=== PATIENT | male | born 1960 | race Caucasian/White ===

== ENCOUNTER → 2016-05-11 | Outpatient (CLI) | payer BC ==
[~2016-05-11] MED LIST: ASPI81CH2 PO; BLOOD PRESSURE PO; FLVHFA110 INH; IPRA1AER2 INH; LISIPOW PO; LSX40 PO; METO1TAB31 PO; POTA1TAB97 PO; [UNRECOGNIZED DRUG - CODE] PO
--- NOTE | 2016-05-11 14:39 | DIAGNOSTIC IMAGING REPORT ---
RIGHT ELBOW MIN 3 VIEWS ROUTINE CLINICAL HISTORY: Olecranon bursitis. COMPARISON: None FINDINGS: Alignment of the right elbow is anatomic. There is no acute fracture or suspicious lesion. There is no evidence of a joint effusion. There is mild spurring of the olecranon at the insertion of the triceps. There is mild to moderate soft tissue swelling overlying the olecranon. IMPRESSION: 1. No acute fracture or joint effusion of the right elbow. 2. Mild to moderate soft tissue swelling overlying olecranon. The radiographic appearance is nonspecific but this could reflect olecranon bursitis. Electronically signed by: Kiet Simpson M.D. 05/11/2016 2:37 PM Dictated Date/Time: 05/11/2016 2:34 PM
== END | disposition home or self-care (01) ==
LOC: C.RAD1850 14:06
PROVIDERS: ATTEND Family Medicine
DX: M70.20 Olecranon bursitis, unspecified elbow (principal)

== ENCOUNTER 2016-09-06 17:34 | Inpatient (IN) | payer BC, OTHER ==
[~2016-09-06] VITALS: Ht 185.4 cm; Wt 120.7 kg
[~2016-09-06 17:34] MED LIST changes: -ASPI81CH2 PO; -BLOOD PRESSURE PO; -IPRA1AER2 INH; -LISIPOW PO; -LSX40 PO; -METO1TAB31 PO; -POTA1TAB97 PO
[2016-09-06] MEDS ORDERED: POTASSIUM CHLORIDE 10 MEQ TABCR PO STA (17:52)
[2016-09-06] MEDS ORDERED: MAGNESIUM SULFATE 1GM / D5W 1 GM BAG IV STA (17:52)
[2016-09-06] MEDS ORDERED: IPRA1AER2 INH (17:58)
[2016-09-06] MEDS ORDERED: [UNRECOGNIZED DRUG - CODE] PO (17:58)
[2016-09-06] MEDS ORDERED: BLOOD PRESSURE PO (17:58)
--- NOTE | 2016-09-06 18:05 | DIAGNOSTIC IMAGING REPORT ---
CHEST ONE VIEW PORTABLE CLINICAL HISTORY: pitting edema dyspnea COMPARISON STUDY: 10/23/2014 FINDINGS: Moderate cardiomegaly. Moderate congestive heart failure. Small right pleural effusion. IMPRESSION: Congestive heart failure. Small right pleural effusion. Electronically signed by: Ravindra Gray M.D. 09/06/2016 6:04 PM Dictated Date/Time: 09/06/2016 6:03 PM
[2016-09-06 18:32] LABS: BASO % 0.3 %; BASO ABS # 0.04 K/uL (0-0.2); COMPLETE YES; EOS % 0.8 %; HEMATOCRIT 46.6 % (42-52); IG% 0.3 %; LYMPH % 16.9 %; LYMPH ABS # 1.96 K/uL (1.2-3.4); MEAN CELL VOLUME 109.6 fL (80-100); MEAN CORPUSCULAR HEMOGLOBIN 37.9 pg (25-34); MEAN CORPUSCULAR HGB CONC 34.5 g/dl (32-36); MEAN PLATELET VOLUME 10.8 fL (7.4-10.4); MONO % 10.4 %; NEUT % 71.3 %; PLATELET COUNT 197 K/uL (130-400); RED BLOOD COUNT 4.25 M/uL (4.7-6.1); WHITE BLOOD COUNT 11.63 K/uL (4.8-10.8)
[2016-09-06 18:55] LABS: BUN/CREATININE RATIO 10.8 (10-20); CREATININE 0.72 mg/dl (0.60-1.40); MAGNESIUM 1.6 mg/dl (1.8-2.4)
[2016-09-06] MEDS ORDERED: FUROSEMIDE 40 MG/4 ML VIAL IV STA (19:08)
[2016-09-06] MEDS ORDERED: ONDANSETRON INJ 2 MG/ML 2 ML VIAL IV PRN (19:15)
[2016-09-06] MEDS ORDERED: MoRPHine SULFATE 2 MG/ML CARP IV PRN (19:15)
[2016-09-06] MEDS ORDERED: ALUMINUM/MAGNESIUM/SIMETH (MAALOX MAX) 30 ML UDC PO PRN (19:15)
[2016-09-06] MEDS ORDERED: MAGNESIUM HYDROXIDE SUSP 30 ML UDC PO PRN (19:15)
[2016-09-06] MEDS ORDERED: NITROGLYCERIN 0.4 MG SL PER TAB CHARGE SL PRN (19:15)
[2016-09-06] MEDS ORDERED: ACETAMINOPHEN 325 MG TAB PO PRN (19:15)
--- NOTE | 2016-09-06 19:33 | EMERGENCY ROOM VISIT NOTE ---
History Report prepared by Lauren: Juany Mahoney Under the Supervision of: Dr. Tej Lucero D.O. 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 The patient states that he occasionally experiences gout in his toes and states that with gout he experiences swelling in his feet. He states he currently has gout on his right foot but once on medication the swelling resolved. He states that he noticed that the swelling was not resolving and was worsening. The patient states he takes Bumex for a diuretic but states he ran out of his medication about 1 week ago. He states he saw his PCP today and was going to receive Bumex by IV but after blood work showing abnormal potassium and magnesium he was told to come into the ED. The patient states that he has noticed the edema has gone up his legs and up into his buttocks. He states that other than the edema he has no chest pain, or worsening shortness of breath. He states that he does have some shortness of breath when laying down but states that it has not been occurring more recently. Patient states that he is not sure how much weight he has gain recently due to the edema. The patient denies any diarrhea, fever, and abdominal pain recently. 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 A total of 10 systems reviewed and were otherwise negative. Past Medical & Surgical Medical Problems: (1) Acute on chronic systolic (congestive) heart failure (2) History of Hodgkin's disease (3) Hypertension (4) Pneumonia (5) Tobacco Use Disorder Surgical Problems: (1) History of rotator cuff surgery Family History Cancer Heart disease Lung disease Social History Smoking Status: Current Every Day Smoker Alcohol Use: occasionally Marital Status: Occupation Status: employed Current/Historical Medications Scheduled Ipratropium-Albuterol (Combivent Respimat), 1 PUFFS INH QID [Blood Pressure], 1 TAB PO DAILY [Diuretic], 1 TAB PO DAILY Scheduled PRN Fluticasone Propionate (Flovent Hfa), 2 PUFF INH BID PRN for PRN Allergies Coded Allergies: Iodinated Diagnostic Agents (Verified Allergy, Intermediate, "my face blew up", 09/06/16) Physical Exam Vital Signs Date Time Temp Pulse Resp B/P Pulse Ox O2 Delivery O2 Flow Rate FiO2 09/06/16 18:25 90 24 142/99 95 Room Air 09/06/16 17:39 36.0 89 20 145/91 93 Room Air Physical Exam GENERAL: Standing up in room, alert, well appearing, well nourished, no distress , non-toxic EYE EXAM: normal conjunctiva OROPHARYNX: no exudate, no erythema, lips, buccal mucosa, and tongue normal and mucous membranes are moist NECK: supple, no nuchal rigidity, no adenopathy, non-tender LUNGS: Clear to auscultation. Normal chest wall mechanics HEART: no murmurs, S1 normal and S2 normal ABDOMEN: abdomen soft, non-tender, normo-active bowel sounds, no masses, no rebound or guarding. BACK: Back is symmetrical on inspection and there is no deformity, no midline tenderness, no CVA tenderness. SKIN: no rashes and no bruising UPPER EXTREMITIES: upper extremities are grossly normal, IV located in right forearm. LOWER EXTREMITIES: Pitting edema tracking up to hips. NEURO EXAM: Normal sensorium, cranial nerves II-XII grossly intact, normal speech, no gross weakness of arms, no gross weakness of legs. Medical Decision & Procedures ER Provider Diagnostic Interpretation: Radiology results as stated below per my review and the radiologist's interpretation: CHEST ONE VIEW PORTABLE CLINICAL HISTORY: pitting edema dyspnea COMPARISON STUDY: 10/23/2014 FINDINGS: Moderate cardiomegaly. Moderate congestive heart failure. Small right pleural effusion. IMPRESSION: Congestive heart failure. Small right pleural effusion. Electronically signed by: Ravindra Gray M.D. 09/06/2016 6:04 PM Dictated Date/Time: 09/06/2016 6:03 PM Laboratory Results 09/06/16 18:18 Red Blood Count 4.25, Mean Corpuscular Volume 109.6, Mean Corpuscular Hemoglobin 37.9, Mean Corpuscular Hemoglobin Concent 34.5, Mean Platelet Volume 10.8, Neutrophils (%) (Auto) 71.3, Lymphocytes (%) (Auto) 16.9, Monocytes (%) ( Auto) 10.4, Eosinophils (%) (Auto) 0.8, Basophils (%) (Auto) 0.3, Neutrophils # (Auto) 8.30, Lymphocytes # (Auto) 1.96, Monocytes # (Auto) 1.21, Eosinophils # ( Auto) 0.09, Basophils # (Auto) 0.04 09/06/16 18:18 Test 09/06/16 18:18 White Blood Count 11.63 K/uL (4.8-10.8) Red Blood Count 4.25 M/uL (4.7-6.1) Hemoglobin 16.1 g/dL (14.0-18.0) Hematocrit 46.6 % (42-52) Mean Corpuscular Volume 109.6 fL (80-100) Mean Corpuscular Hemoglobin 37.9 pg (25-34) Mean Corpuscular Hemoglobin Concent 34.5 g/dl (32-36) Platelet Count 197 K/uL (130-400) Mean Platelet Volume 10.8 fL (7.4-10.4) Neutrophils (%) (Auto) 71.3 % Lymphocytes (%) (Auto) 16.9 % Monocytes (%) (Auto) 10.4 % Eosinophils (%) (Auto) 0.8 % Basophils (%) (Auto) 0.3 % Neutrophils # (Auto) 8.30 K/uL (1.4-6.5) Lymphocytes # (Auto) 1.96 K/uL (1.2-3.4) Monocytes # (Auto) 1.21 K/uL (0.11-0.59) Eosinophils # (Auto) 0.09 K/uL (0-0.5) Basophils # (Auto) 0.04 K/uL (0-0.2) RDW Standard Deviation 55.9 fL (36.4-46.3) RDW Coefficient of Variation 13.9 % (11.5-14.5) Immature Granulocyte % (Auto) 0.3 % Immature Granulocyte # (Auto) 0.03 K/uL (0.00-0.02) Anion Gap 7.0 mmol/L (3-11) Est Creatinine Clear Calc Drug Dose 166.6 ml/min Estimated GFR () 123.4 Estimated GFR (Non- 106.5 BUN/Creatinine Ratio 10.8 (10-20) Calcium Level 9.0 mg/dl (8.5-10.1) Magnesium Level 1.6 mg/dl (1.8-2.4) Pro-B-Type Natriuretic Peptide 889 pg/ml (0-900) Laboratory results per my review. Medications Administered Medications (Trade) Dose Ordered Sig/Meghann Route Start Time Stop Time Status Last Admin Dose Admin Magnesium Sulfate (Magnesium Sulfate) 2 gm NOW STAT IV 09/06/16 17:52 09/06/16 17:53 DC 09/06/16 17:52 2 GM Potassium Chloride (Klor-Con M10) 40 meq NOW STAT PO 09/06/16 17:52 09/06/16 17:53 DC 09/06/16 18:14 40 MEQ Furosemide (Lasix Inj) 40 mg NOW STAT IV 09/06/16 19:08 09/06/16 19:12 DC 09/06/16 19:14 40 MG ECG Indication: other (edema) Rate (beats per minute): 90 Rhythm: sinus rhythm Findings: PVC, left axis deviation, other (Prolonged QT) ED Course ED COURSE: Vital signs were reviewed and showed normal The patients medical record was reviewed. He had a catheterization in 2014 which showed no CAD, non ischemic cardiomyopathy secondary to hypertension and COPD Echocardiogram done 11/02/2014 shows EF is moderate LV disfunction, grade 1 diastolic disfunction. The patient had blood work done on 09/06/2016 showing a potassium of 3.0 and magnesium of 1.4 The above diagnostic studies were performed and reviewed. ED treatments and interventions as stated above. 174: The patient was evaluated in room C3. A complete history and physical examination was performed. 175: Ordered Potassium Chloride 40 meq PO, Magnesium Sulfate 2 gm IV. 1753: I discussed the case with Dr. Belkis JOSÉ Hospitalist. He agreed to evaluate the patient for further management and care. 1759: Upon reevaluation, the patient is resting comfortably.I discussed my findings with the patient and he understands and agrees with the treatment plan.Based on the patients age, coexisting illnesses, exam and lab findings the decision to treat as an inpatient was made.The patient remained stable while under my care. The patient will be evaluated for further management. Medical Decision Differential diagnoses includes but is not limited to pneumonia, bronchitis, COPD/Asthma exacerbation, pneumothorax, pulmonary embolism, congestive heart failure, acute coronary syndrome Patient is a 55-year-old male who presents the ER from cardiology. He ran out of his diuretic a week ago and has been gaining weight and has been putting edema is lower extremity is. He had blood work done which showed hypokalemia and a potassium of 3.0 along with hypomagnesemia and a magnesium of 1.4. He presents the ER with an IV in place. Dr. Miller from cardiology recommended admission and echo along with replacement of his potassium, magnesium and then diuresis. Upon presentation blood work was obtained and I discussed the case with internal medicine. EKG did confirm a prolonged QT. Patient was updated at bedside admitted to internal medicine. Consults Time Called: 1751 Consulting Physician: Dr. Belkis JOSÉ Hospitalist Returned Call: 1753 I discussed the case with Dr. Belkis JOSÉ Hospitalist. He agreed to evaluate the patient for further management and care. Impression Primary Impression: CHF (congestive heart failure) Additional Impressions: Hypokalemia Hypomagnesemia Scribe Attestation The scribe's documentation has been prepared under my direction and personally reviewed by me in its entirety. I confirm that the note above accurately reflects all work, treatment, procedures, and medical decision making performed by me. Departure Information Dispostion Being Evaluated By Hospitalist Referrals No Doctor, Assigned (PCP) Patient Instructions My [facility] Problem Qualifiers Primary Impression: CHF (congestive heart failure) Congestive heart failure type: unspecified congestive heart failure type Congestive heart failure chronicity: unspecified congestive heart failure chronicity Qualified Codes: I50.9 - Heart failure, unspecified
[2016-09-06] MEDS: ALBUT/IPRATROP 3MG/0.5MG NEB 3 ML VIAL INH SCH (20:00)
[2016-09-06 20:44] VITALS: BP 150/91; PULSE 89; TEMP 36.9; O2SAT 93
[2016-09-06] MEDS ORDERED: CARVEDILOL 3.125 MG TAB PO SCH (21:00)
[2016-09-06] MEDS: MAGNESIUM OXIDE 400 MG TAB PO SCH (21:06)
[2016-09-06 21:26] LABS: HEMATOCRIT 48.4 % (42-52); MEAN CELL VOLUME 109.3 fL (80-100); MEAN CORPUSCULAR HEMOGLOBIN 38.8 pg (25-34); MEAN CORPUSCULAR HGB CONC 35.5 g/dl (32-36); MEAN PLATELET VOLUME 10.6 fL (7.4-10.4); PLATELET COUNT 190 K/uL (130-400); RED BLOOD COUNT 4.43 M/uL (4.7-6.1); WHITE BLOOD COUNT 11.56 K/uL (4.8-10.8)
[2016-09-06] MEDS ORDERED: COLCHICINE 0.6 MG TAB PO ONE (21:30)
[2016-09-06] MEDS ORDERED: GABAPENTIN 600 MG TAB PO SCH (21:30)
[2016-09-06] MEDS ORDERED: LORAZEPAM 2 MG/ML 1 ML VIAL IV PRN (21:30)
[2016-09-06] MEDS ORDERED: LISINOPRIL 10 MG TAB PO ONE (21:30)
[2016-09-06] MEDS ORDERED: POTASSIUM CHLORIDE 10 MEQ TABCR PO ONE (21:30)
[2016-09-06] MEDS ORDERED: LORAZEPAM 1 MG TAB PO PRN (21:30)
--- NOTE | 2016-09-06 21:37 | History and Physical ---
History & Physical Date & Time of Service: September 06, 2016 at 18:45 Chief Complaint: Fluid Retention Primary Care Physician: Meg Goodwin M.D. History of Present Illness Source: patient 55yo male with h/o dilated cardiomyopathy/chronic systolic CHF with EF 40-45% who presents as a referral from Dr. Henriquez's office ([facility]) due to decompensated CHF. For about 3 weeks he has had worsening LE edema, dyspnea on exertion, abdominal swelling, and weight gain (20-30 pounds). Surprisingly he denies PND or orthopnea. Denies chest pain or tightness. He admits to high salt intake through his diet over the last few months. He also drinks at least 2 shots of liquor nightly. Following his visit with Dr. Henriquez today he had blood work and was found to have low potassium and low magnesium. Attempts were going to be made to diurese him in the office but due to the electrolyte abnormalities and prolonged QTc on EKG he was referred to the ER. In addition to the above he reports active gout in the right mid-foot. He has had multiple episodes of gout in the past. He does not know the names of his medications but states he "takes a water pill ". [facility] pharmacy was contacted and he did in fact, on September 01, fill a prescription for 25mg of chlorthalidone. Past Medical/Surgical History PMH: 1. chronic systolic CHF, EF 45% - dx 2014 2. Hodgkin's Lymphoma - dx age 32 3. HTN 4. COPD 5. chronic tobacco dependence 6. gout PSH: 1. lymph node biopsy 2. 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 [employer]) Multi-Drug Resistant Organisms History of MDRO: No Allergies Coded Allergies: Iodinated Diagnostic Agents (Verified Allergy, Intermediate, "my face blew up", 09/06/16) Home Medications Scheduled Ipratropium-Albuterol (Combivent Respimat), 1 PUFFS INH QID [Blood Pressure], 1 TAB PO DAILY [Diuretic], 1 TAB PO DAILY Scheduled PRN Fluticasone Propionate (Flovent Hfa), 2 PUFF INH BID PRN for PRN Review of Systems Constitutional: + problem reported (weight gain - 20-30 pounds), No chills, No fatigue, No fever, No sweats, No weakness Eyes: No worsening of vision ENT: + nasal symptoms (allergies), No hearing loss, No sore throat, No trouble swallowing Respiratory: + cough, + dyspnea on exertion, + sputum (white in color), No dyspnea at rest, No hemoptysis, No wheezing Cardiovascular: + edema, No PND, No chest pain, No orthopnea, No palpitations Abdomen: No diarrhea, No nausea, No pain, No vomiting Musculoskeletal: + joint pain (gout - right foot) Genitourinary - Male: No dysuria, No hematuria Neurologic: No numbness/tingling Psychiatric: No anxiety, No depression symptoms Endocrine: No excessive thirst, No excessive urination, No fatigue Hematologic / Lymphatic: No abnormal bleeding/bruising Integumentary: No rash Allergic / Immunologic: + environmental allergies, + seasonal allergies Physical Exam Vital Signs Date Time Temp Pulse Resp B/P Pulse Ox O2 Delivery O2 Flow Rate FiO2 09/06/16 18:25 90 24 142/99 95 Room Air 09/06/16 17:39 36.0 89 20 145/91 93 Room Air General Appearance: no apparent distress, + obese Head: normocephalic, atraumatic Eyes: PERRL, sclerae normal ENT: hearing grossly normal, TMs normal, pharynx normal Neck: supple, no adenopathy, thyroid normal, no carotid bruits, trachea midline , + JVD (to the jaw) Respiratory/Chest: no respiratory distress, no accessory muscle use, + crackles (bases b/l ), + wheezing (extensive b/l in all lung segments) Cardiovascular: regular rate, rhythm, no gallop, no murmur, normal peripheral pulses Abdomen/GI: normal bowel sounds, non tender, soft, + hepatomegaly, + pertinent finding (probable ascites) Back: normal inspection Extremities/Musculoskelatal: + pedal edema (3-4+ b/l all the way up to the knees ), + pertinent finding (right foot (mid-foot) - tender, mildly warm, swollen) Neurologic/Psych: no motor/sensory deficits, alert, normal reflexes, oriented x 3 Skin: no rash Lymphatic: no adenopathy (cervical ) Diagnostics Laboratory Results Results Past 24 Hours Test 09/06/16 18:18 Range/Units White Blood Count 11.63 4.8-10.8 K/uL Red Blood Count 4.25 4.7-6.1 M/uL Hemoglobin 16.1 14.0-18.0 g/dL Hematocrit 46.6 42-52 % Mean Corpuscular Volume 109.6 80-100 fL Mean Corpuscular Hemoglobin 37.9 25-34 pg Mean Corpuscular Hemoglobin Concent 34.5 32-36 g/dl Platelet Count 197 130-400 K/uL Mean Platelet Volume 10.8 7.4-10.4 fL Neutrophils (%) (Auto) 71.3 % Lymphocytes (%) (Auto) 16.9 % Monocytes (%) (Auto) 10.4 % Eosinophils (%) (Auto) 0.8 % Basophils (%) (Auto) 0.3 % Neutrophils # (Auto) 8.30 1.4-6.5 K/uL Lymphocytes # (Auto) 1.96 1.2-3.4 K/uL Monocytes # (Auto) 1.21 0.11-0.59 K/uL Eosinophils # (Auto) 0.09 0-0.5 K/uL Basophils # (Auto) 0.04 0-0.2 K/uL RDW Standard Deviation 55.9 36.4-46.3 fL RDW Coefficient of Variation 13.9 11.5-14.5 % Immature Granulocyte % (Auto) 0.3 % Immature Granulocyte # (Auto) 0.03 0.00-0.02 K/uL Diagnostic Radiology cxr - pulmonary edema/CHF EKG EKG - my reading - NSR, PVC, borderline first degree AV block; QT prolongation; poor R wave progression; LAE suggested; nonspecific ST changes inferior leads Impression Assessment and Plan 55yo male with known chronic systolic CHF 2nd to dilated cardiomyopathy presenting with decompensated CHF. 1. acute/chronic systolic CHF - * lasix 40mg IV x 1 now, then 40mg IV BID starting in AM * start BB in the AM with metoprolol xl 25mg daily * start STARR tonight with lisinopril 10mg daily * K/Mag supplementation * fluid/salt restriction * daily weights * telemetry * repeat echocardiogram (last echo per Dr. Henriquez was in 2014 - EF 40-45%, severely dilated LV) * consider cardiology consultation with Dr. Henriquez Etiology of his dilated cardiomyopathy is unknown. Due to prior chemotherapy agents for his Lymphoma? Alcohol? Other? Send thiamine level. Needs etoh abstinence. 2. prolonged QTc - 2nd to low K and low mag; replete, repeat EKG in am. 3. hypokalemia - replace, repeat K am. 4. hypomagnesemia - replace, repeat Mag am. Etiology of low k & mag -- could be the chlorthalidone and/or etoh abuse. 5. midfoot gout on right - stop the chlorthalidone (this med will raise uric acid levels). Etoh abuse may be contributing as well. Start colchicine 0.6mg BID. Avoid NSAIDs/prednisone due to #1. 6. tobacco dependence - nicoderm patch. 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 7. alcohol abuse - I am concerned that he drinks heavily at times given his elevated MCV on cbc, abnormal LFTs, etc. Place on alcohol withdrawal protocol. MVI/Thiamine/Folic acid. Gabapentin per protocol; ativan prn. 8. abnormal LFTs - could be from hepatic congestion from CHF vs alcohol. Repeat in 48 hours. 9. weight gain - most likely 2nd to #1; check TSH to be complete. 10. elevated MCV - check b12/folic acid levels. 11. DVT proph - lovenox 40mg daily. 12. obesity with BMI of 37 - at risk of VIVIAN which could worsen #1 above. Would refer for sleep study after admission. 13. FEN - 2 gram salt diet; fluid restrict 1500cc/day. BMP/mag in AM. 14. HTN - see #1 above; STARR and beta lucita to start. 15. COPD - duonebs q6h. Some of the wheezing could be "cardiac" wheezing (ie pulmonary edema). NO steroids/antibiotics at this time. full code Level of Care Telemetry Resuscitation Status FULL RESUSCITATION VTE Prophylaxis Risk Level: Moderate Given or contraindicated: Enoxaparin (Lovenox)SQ Note total visit time 70 minutes Additional Copies To Pavel Henriquez, DO; Meg Goodwin M.D.
[2016-09-06 21:43] LABS: CREATININE 0.71 mg/dl (0.60-1.40); PROTHROMBIN TIME (PATIENT) 11.2 SECONDS (9.0-12.0)
[2016-09-06] MEDS ORDERED: GABAPENTIN 600MG LOADING DOSE PO SCH (22:00)
[2016-09-06] MEDS: NICOTINE 14 MG/24 HR TDSY TD SCH (22:00)
[2016-09-06 22:18] VITALS: BP 143/91; PULSE 89; TEMP 36.9; O2SAT 93; Ht 185.4 cm; Wt 120.7 kg
[2016-09-06 23:42] VITALS: BP 144/81; PULSE 80; TEMP 37; O2SAT 93
[2016-09-07] VITALS (10 sets, daily range): BP systolic 108–141; BP diastolic 68–97; PULSE 72–98; TEMP 36.8–36.9; O2SAT 91–98
[2016-09-07] MEDS: GABAPENTIN 100MG Q6H DOSE PO SCH ×2 (05:35→12:10)
[2016-09-07 06:18] LABS: CREATININE 0.7 mg/dl (0.60-1.40); POTASSIUM 3.2 mmol/L (3.5-5.1)
[2016-09-07 06:27] LABS: CALCIUM 9.6 mg/dl (8.5-10.1)
[2016-09-07 06:29] LABS: THYROID STIMULATING HORMONE 2.33 uIu/ml (0.300-4.500)
[2016-09-07] MEDS: ALBUT/IPRATROP 3MG/0.5MG NEB 3 ML VIAL INH SCH ×4 (07:32→19:52)
[2016-09-07] MEDS: FLUTICASONE HFA 220 MCG INHALER INH SCH ×2 (07:43→20:59)
[2016-09-07] MEDS: COLCHICINE 0.6 MG TAB PO SCH ×2 (07:44→21:00)
[2016-09-07] MEDS: CEROVITE ADV FORMULA TAB PO SCH (07:45)
[2016-09-07] MEDS: MAGNESIUM OXIDE 400 MG TAB PO SCH ×2 (07:45→21:00)
[2016-09-07] MEDS: METOPROLOL SUCC 25MG EXT REL TAB PO SCH (07:46)
[2016-09-07] MEDS: THIAMINE HCL 100 MG TAB PO SCH ×2 (07:46→20:58)
[2016-09-07] MEDS: LISINOPRIL 10 MG TAB PO SCH (07:47)
[2016-09-07] MEDS: ENOXAPARIN 40 MG/0.4 ML SYR SC SCH (07:50)
[2016-09-07] MEDS: NICOTINE 14 MG/24 HR TDSY TD SCH (07:50)
[2016-09-07] MEDS: FUROSEMIDE INJ 40 MG in SYRINGE 0 ML IV SCH ×2 (07:51→17:38)
[2016-09-07] MEDS ORDERED: POTASSIUM CHLORIDE 20 MEQ TABCR PO SCH (09:00)
[2016-09-07] MEDS ORDERED: OXYCODONE/ACETAMINOPHEN 5-325 TAB PO PRN (12:15)
[2016-09-07] MEDS: NAPROXEN 375 MG TAB PO SCH ×2 (13:11→21:00)
[2016-09-07] MEDS ORDERED: PERFLUTREN LIPID MICROSPHERE (DEFINITY) IV ONE (13:18)
--- NOTE | 2016-09-07 17:05 | ECHOCARDIOGRAM REPORT ---
*NOTICE TO RECEIVING [employer] This information is strictly Confidential and protected under [place] law. [place] law prohibits you from making any further disclosure of this information unless further disclosure is expressly permitted by the written consent of the person to whom it pertains or is authorized by law. A general authorization for the release of medical or other information is not sufficient for this purpose. Hospital accepts no responsibility if the information is made available to any other person, INCLUDING THE PATIENT. Interpretation Summary * Name: ALEC REED Study Date: 09/07/2016 10:00 AM BP: 141/92 mmHg * Patient Location: [facility]\S\N286\S\2 HR: 89 * : 1960 (M/d/yyyy) Gender: Male Height: 72 in * Age: 55 yrs Ethnicity: [place] Weight: 283 lb * Ordering Physician: Erwin Dennison * Referring Physician: Self, Referred * Performed By: Bee Chambers RCS * * Reason For Study: CHF * BSA: 2.5 m2 * -- Conclusions -- * The study was technically difficult. * The study was technically limited. * There is moderate concentric left ventricular hypertrophy. * Left ventricular systolic function is moderate to severely reduced. * Regional wall motion abnormalities cannot be excluded due to limited visualization. * The left atrium is severely dilated. * The right atrium is mild to moderately dilated. Procedure Details * A complete two-dimensional transthoracic echocardiogram was performed (2D, M-mode, Doppler and color flow Doppler). * The study was technically difficult. * There were technical limitations due to patient'spoor positioning * A contrast injection of Definity was performed to improve assessment of LV function. * Contrast was injected into an intravenous site in the left arm. * Lot # [id number] of Definity utilized for procedure. * Expiration date 1APR18. * The attending nurse who injected the contrast agent was Kike Pepper RN. * The study was technically limited. Left Ventricle * The left ventricle is normal in size. * There is moderate concentric left ventricular hypertrophy. * Left ventricular systolic function is moderate to severely reduced. * Ejection Fraction = 25-30%. * Regional wall motion abnormalities cannot be excluded due to limited visualization. Right Ventricle * The right ventricle is normal in size and function. Atria * The left atrium is severely dilated. * The right atrium is mild to moderately dilated. Mitral Valve * The mitral valve is not well visualized. * Significant mitral regurgitation is absent. Tricuspid Valve * The tricuspid valve is not well visualized. * Significant tricuspid regurgitation is absent. Aortic Valve * The aortic valve is not well visualized. * No hemodynamically significant valvular aortic stenosis. * There is no significant aortic regurgitation. Pericardium/Pleural * There is no pericardial effusion. Great Vessels * Normal inferior vena cava diameter and respiratory variation suggests normal central venous pressure. MMode 2D Measurements and Calculations IVSd 1.8 cm IVSs 1.6 cm LVIDd 5.2 cm LVIDs 4.4 cm LVPWd 1.5 cm LVPWs 1.8 cm IVS/LVPW 1.2 FS 16.5 % EDV(Teich) 130.8 ml ESV(Teich) 85.9 ml EF(Teich) 34.3 % EDV(cubed) 142.4 ml ESV(cubed) 83.0 ml EF(cubed) 41.8 % % IVS thick -10.29 % % LVPW thick 22.3 % LV mass(C)d 397.0 grams LV mass(C)dI 160.8 grams/m\S\2 LV mass(C)s 327.9 grams LV mass(C)sI 132.8 grams/m\S\2 CO(Teich) 3.6 l/min CI(Teich) 1.5 l/min/m\S\2 SV(Teich) 44.9 ml SI(Teich) 18.2 ml/m\S\2 CO(cubed) 4.8 l/min CI(cubed) 2.0 l/min/m\S\2 SV(cubed) 59.5 ml SI(cubed) 24.1 ml/m\S\2 Ao root diam 3.4 cm Ao root area 9.3 cm\S\2 ACS 1.4 cm LA dimension 5.0 cm asc Aorta Diam 3.3 cm LA/Ao 1.5 LVAd ap4 43.8 cm\S\2 LVLd ap4 9.4 cm EDV(MOD-sp4) 164.0 ml LVAs ap4 32.8 cm\S\2 LVLs ap4 8.8 cm ESV(MOD-sp4) 97.0 ml EF(MOD-sp4) 40.9 % LVAd ap2 42.3 cm\S\2 LVLd ap2 9.8 cm EDV(MOD-sp2) 147.0 ml LVAs ap2 35.5 cm\S\2 LVLs ap2 9.0 cm ESV(MOD-sp2) 115.0 ml EF(MOD-sp2) 21.8 % CO(MOD-sp4) 5.4 l/min CI(MOD-sp4) 2.2 l/min/m\S\2 SV(MOD-sp4) 67.0 ml SI(MOD-sp4) 27.1 ml/m\S\2 CO(MOD-sp2) 2.6 l/min CI(MOD-sp2) 1.0 l/min/m\S\2 SV(MOD-sp2) 32.0 ml SI(MOD-sp2) 13.0 ml/m\S\2 Doppler Measurements and Calculations MV E max galileo 83.9 cm/sec MV A max galileo 73.1 cm/sec MV E/A 1.1 MV P1/2t max galileo 97.1 cm/sec MV P1/2t 71.9 msec MVA(P1/2t) 3.1 cm\S\2 MV dec slope 395.6 cm/sec\S\2 MV dec time 0.32 sec Ao V2 max 140.6 cm/sec Ao max PG 7.9 mmHg Ao max PG (full) 4.3 mmHg LV V1 max PG 3.6 mmHg LV V1 max 95.4 cm/sec MR max galileo 309.1 cm/sec MR max PG 38.2 mmHg PA V2 max 115.6 cm/sec PA max PG 5.4 mmHg
--- NOTE | 2016-09-07 18:15 | Progress Note ---
Subjective Date of Service: September 07, 2016. (Puneet Mcgregor CRNP) Subjective Pt evaluation today including: conversation w/ patient, physical exam, chart review, lab review, review of studies, review of inpatient medication list Pain: "gout" right foot pain PO Intake: tolerating PO Voiding: no voiding problems Not as SOB, no CP. C/O right foot and knee pain. (Puneet Mcgregor CRNP) Problem List Medical Problems: (1) CHF (congestive heart failure) Status: Acute (2) Hypokalemia Status: Acute (3) Hypomagnesemia Status: Acute (Puneet Mcgregor CRNP) Review of Systems Constitutional: No chills, No fatigue, No fever, No problem reported, No see HPI, No sweats, No weakness, No weight loss Respiratory: + dyspnea on exertion, + shortness of breath Cardiac: + edema (+2 BLE edema), No PND, No chest pain, No claudication, No orthopnea, No palpitations, No problem reported, No see HPI Abdomen: No GI bleeding, No constipation, No diarrhea, No nausea, No pain, No problem reported, No see HPI, No vomiting Musculoskeletal: + joint pain (right foot, right knee), + swelling (right foot although also has dependent edema) (Puneet Mcgregor CRNP) Medications medications reviewed (Puneet Mcgregor CRNP) Objective Vital Signs Date Time Temp Pulse Resp B/P Pulse Ox O2 Delivery O2 Flow Rate FiO2 09/07/16 15:41 85 16 95 Room Air 09/07/16 15:27 36.8 87 16 130/80 91 Room Air 09/07/16 12:00 Room Air 09/07/16 11:29 36.9 84 16 123/78 95 Room Air 09/07/16 11:02 88 16 94 Room Air 09/07/16 08:00 Room Air 09/07/16 07:45 36.8 72 16 141/97 91 Room Air 09/07/16 07:40 98 16 97 Room Air 09/07/16 04:00 Room Air 09/07/16 04:00 36.9 89 16 141/92 91 09/07/16 00:00 Room Air 09/06/16 23:42 37.0 80 18 144/81 93 09/06/16 22:18 36.9 89 18 143/91 93 Room Air 09/06/16 20:44 36.9 89 18 150/91 93 Room Air 09/06/16 20:16 36.0 88 18 163/99 92 09/06/16 20:15 88 18 163/99 92 Room Air 09/06/16 20:04 87 19 92 09/06/16 20:00 162/102 09/06/16 19:59 95 15 92 09/06/16 19:54 85 19 92 09/06/16 19:49 89 21 92 09/06/16 19:44 87 20 91 09/06/16 19:39 83 20 92 09/06/16 19:34 94 20 92 09/06/16 19:30 164/103 09/06/16 19:29 86 20 93 09/06/16 19:24 83 15 93 09/06/16 19:19 82 18 92 09/06/16 19:14 84 21 92 09/06/16 19:09 86 17 92 09/06/16 19:04 90 25 93 09/06/16 19:00 156/90 09/06/16 18:59 83 19 92 09/06/16 18:54 85 19 92 09/06/16 18:49 87 24 93 09/06/16 18:44 76 20 92 09/06/16 18:39 83 21 94 09/06/16 18:34 85 17 93 09/06/16 18:30 151/94 09/06/16 18:29 83 18 95 09/06/16 18:25 90 24 142/99 95 Room Air 09/06/16 18:11 142/99 09/06/16 17:39 36.0 89 20 145/91 93 Room Air (Puneet Mcgregor, [employer] REDEVELOP[employer] SPECIALIST) Physical Exam General Appearance: WD/WN, no apparent distress Eyes: normal inspection Neck: supple, no JVD Respiratory/Chest: chest non-tender, + crackles, + wheezing Cardiovascular: regular rate, rhythm, no edema, no gallop, no JVD, no murmur Abdomen: normal bowel sounds (obese) Extremities: normal range of motion, + pedal edema, + swelling (pain with palpation right dorsum) Neurologic/Psychiatric: no motor/sensory deficits, alert, oriented x 3 Skin: normal color (Puneet Mcgregor ., [employer]RB[employer] REDEVELOPMENT SPECIALIST) Laboratory Results Last 24 Hours Test 09/06/16 18:18 09/06/16 21:15 09/07/16 05:25 White Blood Count 11.63 K/uL 11.56 K/uL Red Blood Count 4.25 M/uL 4.43 M/uL Hemoglobin 16.1 g/dL 17.2 g/dL Hematocrit 46.6 % 48.4 % Mean Corpuscular Volume 109.6 fL 109.3 fL Mean Corpuscular Hemoglobin 37.9 pg 38.8 pg Mean Corpuscular Hemoglobin Concent 34.5 g/dl 35.5 g/dl Platelet Count 197 K/uL 190 K/uL Mean Platelet Volume 10.8 fL 10.6 fL Neutrophils (%) (Auto) 71.3 % Lymphocytes (%) (Auto) 16.9 % Monocytes (%) (Auto) 10.4 % Eosinophils (%) (Auto) 0.8 % Basophils (%) (Auto) 0.3 % Neutrophils # (Auto) 8.30 K/uL Lymphocytes # (Auto) 1.96 K/uL Monocytes # (Auto) 1.21 K/uL Eosinophils # (Auto) 0.09 K/uL Basophils # (Auto) 0.04 K/uL RDW Standard Deviation 55.9 fL 56.2 fL RDW Coefficient of Variation 13.9 % 14.0 % Immature Granulocyte % (Auto) 0.3 % Immature Granulocyte # (Auto) 0.03 K/uL Sodium Level 139 mmol/L 140 mmol/L Potassium Level 3.0 mmol/L 3.2 mmol/L Chloride Level 99 mmol/L 98 mmol/L Carbon Dioxide Level 33 mmol/L 35 mmol/L Anion Gap 7.0 mmol/L 7.0 mmol/L Blood Urea Nitrogen 8 mg/dl 8 mg/dl Creatinine 0.72 mg/dl 0.71 mg/dl 0.70 mg/dl Est Creatinine Clear Calc Drug Dose 166.6 ml/min 169.0 ml/min 171.4 ml/min Estimated GFR () 123.4 124.2 124.9 Estimated GFR (Non- 106.5 107.1 107.7 BUN/Creatinine Ratio 10.8 12.0 Random Glucose 93 mg/dl 84 mg/dl Calcium Level 9.0 mg/dl 9.6 mg/dl Magnesium Level 1.6 mg/dl 2.0 mg/dl Total Bilirubin 1.2 mg/dl Direct Bilirubin 0.3 mg/dl Aspartate Amino Transf (AST/SGOT) 90 U/L Alanine Aminotransferase (ALT/SGPT) 52 U/L Alkaline Phosphatase 108 U/L Pro-B-Type Natriuretic Peptide 889 pg/ml Total Protein 7.5 gm/dl Albumin 3.6 gm/dl Prothrombin Time 11.2 SECONDS Prothromb Time International Ratio 1.0 Vitamin B12 Level 449 pg/mL Folate 3.88 ng/mL Thyroid Stimulating Hormone (TSH) 2.330 uIu/ml (Puneet Mcgregor, MANUELITO) Assessment and Plan 1. acute/chronic systolic CHF - Not as SOB - - cont IV lasix. change to PO in am if cont to do well, still with +2 BLE edema. - cont BB, STARR, ASA - cont fluid/salt restrictions - echo pending - consider cardiology consultation with Dr. Henriquez if he does not improve 2. prolonged QTc - still prolonged - no change. ? 2nd to low K. Repleted Mag and still low. Check PRP in am 3. hypokalemia - replace, repeat K am. 4. hypomagnesemia - continue PO mag. normal today, repeat in AM 5. midfoot gout on right - stop the chlorthalidone Etoh abuse may be contributing as well as diuresis started colchicine 0.6mg BID. has not helped, cont. try naproxen added Percocet 6. tobacco dependence - nicoderm patch. cessation 7. alcohol abuse alcohol withdrawal protocol. MVI/Thiamine/Folic acid. Gabapentin per protocol; ativan prn. 8. DVT prophylaxis - lovenox. 9. ELS likely 2 more days Continued [facility] stay due to: multiple IV medications needed Discharge planning: home with home health (Puneet Mcgregor, MANUELITO) I agree with SUPERVISOR LEAD REFINERY assessment and plan Resting comfortably in bed Appropriate diuresis COnt IV lasix Switch to PO in next 24 hrs Cont to monitor QT interval Labs and EKG reviewed (Willie Cooper D.Xavi)
[2016-09-07] MEDS: POTASSIUM CHLORIDE 20 MEQ TABCR PO SCH (20:58)
[2016-09-08] VITALS (8 sets, daily range): BP systolic 114–150; BP diastolic 71–76; PULSE 53–85; TEMP 36.5–37; O2SAT 63–97
[2016-09-08 06:49] LABS: BASO % 0.3 %; BASO ABS # 0.04 K/uL (0-0.2); EOS % 1.4 %; HEMATOCRIT 50.6 % (42-52); IG% 0.5 %; LYMPH % 18.2 %; LYMPH ABS # 2.39 K/uL (1.2-3.4); MEAN CELL VOLUME 110.7 fL (80-100); MEAN CORPUSCULAR HEMOGLOBIN 38.1 pg (25-34); MEAN CORPUSCULAR HGB CONC 34.4 g/dl (32-36); MEAN PLATELET VOLUME 10.6 fL (7.4-10.4); MONO % 11.9 %; NEUT % 67.7 %; PLATELET COUNT 213 K/uL (130-400); RED BLOOD COUNT 4.57 M/uL (4.7-6.1); WHITE BLOOD COUNT 13.14 K/uL (4.8-10.8)
[2016-09-08 07:21] LABS: COMPLETE YES
[2016-09-08 07:40] LABS: BUN/CREATININE RATIO 19.8 (10-20); CALCIUM 9.8 mg/dl (8.5-10.1); CREATININE 0.9 mg/dl (0.60-1.40); PHOSPHORUS 4.3 mg/dl (2.5-4.9); POTASSIUM 3.3 mmol/L (3.5-5.1)
[2016-09-08] MEDS: ALBUT/IPRATROP 3MG/0.5MG NEB 3 ML VIAL INH SCH (07:47)
[2016-09-08] MEDS ORDERED: GABAPENTIN 600MG X1 DOSE PO SCH (08:00)
[2016-09-08] MEDS: FLUTICASONE HFA 220 MCG INHALER INH SCH (08:42)
[2016-09-08] MEDS: FUROSEMIDE INJ 40 MG in SYRINGE 0 ML IV SCH ×2 (08:43→17:19)
[2016-09-08] MEDS: CEROVITE ADV FORMULA TAB PO SCH (08:43)
[2016-09-08] MEDS: COLCHICINE 0.6 MG TAB PO SCH (08:43)
[2016-09-08] MEDS: THIAMINE HCL 100 MG TAB PO SCH (08:43)
[2016-09-08] MEDS: NAPROXEN 375 MG TAB PO SCH (08:44)
[2016-09-08] MEDS: LISINOPRIL 10 MG TAB PO SCH (08:45)
[2016-09-08] MEDS: METOPROLOL SUCC 25MG EXT REL TAB PO SCH (08:45)
[2016-09-08] MEDS: POTASSIUM CHLORIDE 20 MEQ TABCR PO SCH (08:45)
[2016-09-08] MEDS: NICOTINE 14 MG/24 HR TDSY TD SCH (08:46)
[2016-09-08] MEDS: MAGNESIUM OXIDE 400 MG TAB PO SCH (08:46)
[2016-09-08] MEDS: ENOXAPARIN 40 MG/0.4 ML SYR SC SCH (08:46)
[2016-09-08] MEDS ORDERED: POTASSIUM CHLORIDE 20 MEQ TABCR PO ONE (10:00)
[2016-09-08] MEDS ORDERED: ALBUT/IPRATROP 3MG/0.5MG NEB 3 ML VIAL INH PRN (12:00)
[2016-09-08] MEDS ORDERED: METO-478 PO (16:47)
[2016-09-08] MEDS ORDERED: LSX40 PO (16:47)
[2016-09-08] MEDS ORDERED: LISIPOW PO (16:47)
[2016-09-08] MEDS ORDERED: POTA1TAB97 PO (16:47)
[2016-09-08] MEDS ORDERED: ASPI81CH2 PO (16:47)
--- NOTE | 2016-09-08 16:57 | Discharge Instructions ---
Discharge Instructions Date of Service September 08, 2016. Admission Reason for Admission: Acute On Chronic Systolic Congestive Heart Failure Discharge Discharge Diagnosis / Problem: acute exac of systolic heart failure Discharge Goals Goal(s): Improve function, Improve disease control, Improve nutritional status , Learn about illness Activity Recommendations Activity Limitations: resume your previous activity . Instructions / Follow-Up Instructions / Follow-Up Call your Primary Care doctor if any of the following symptoms or problems start or get worse: * Shortness of breath or difficulty breathing * Wake up at night short of breath * Chest pain * Cough * Swelling of your hands, feet, or legs * More fatigued or tired with your normal activity * Palpitations - sudden fast heart beats WEIGHT * Weigh yourself every morning after using the bathroom. * Use the same scale. * Wear the same amount of clothing. * Write your weight down on a chart. * Call your Primary Care doctor if you gain more than 2-3 pounds in 1-2 days. MEDICATIONS * Use this discharge instruction sheet for medication instructions. * Take your medications at the time your doctor ordered. * Do not skip a dose of your medicines. * If you miss a dose of medicine, take it as soon as possible, but DO NOT DOUBLE A DOSE. * Read your medicine information when you get home. * Know all of the side effects of your medicine. If in doubt, ask your pharmacist * Call your Primary Care doctor's office if you have any side effects. * Be sure all of your doctors know what medicine and herbs you take (including cold, flu, and herbal medicine). Take the following with you to your follow-up doctor appointments: * Weight Chart * Medication List * List of questions Do not drink excessive alcohol, beer or wine. follow up with human resources office assistant next week follow up with PCP next week Will need ongoing BMP monitoring since starting on lasix Current Hospital Diet Patient's current hospital diet: Low Sodium Diet (2gm Na) Discharge Diet Recommended Diet: Low Sodium Diet (2gm Na) Pending Studies Studies pending at discharge: no Laboratory Results Last Resulted CBC 09/08/16 06:23 Red Blood Count 4.57, Mean Corpuscular Volume 110.7, Mean Corpuscular Hemoglobin 38.1, Mean Corpuscular Hemoglobin Concent 34.4, Mean Platelet Volume 10.6, Neutrophils (%) (Auto) 67.7, Lymphocytes (%) (Auto) 18.2, Monocytes (%) ( Auto) 11.9, Eosinophils (%) (Auto) 1.4, Basophils (%) (Auto) 0.3, Neutrophils # (Auto) 8.90, Lymphocytes # (Auto) 2.39, Monocytes # (Auto) 1.56, Eosinophils # ( Auto) 0.19, Basophils # (Auto) 0.04 Last Resulted BMP 09/08/16 06:23 Medical Emergencies . Who to Call and When: Call 911 or go to the Emergency Room if: * If at any time you feel your situation is an emergency * You have tightness or pain in your chest that does not go away with rest or Nitroglycerin * You are very short of breath even with rest . Non-Emergent Contact Non-Emergency issues call your: Primary Care Provider Call Non-Emergent contact if: you have a fever, your pain is not controlled . . "Provider Documentation" section prepared by Puneet Mcgregor. . VTE Core Measure Inpt VTE Proph given/why not?: Enoxaparin (Lovenox)SQ, Unfractionated heparin SQ, T.E.D. Stockings, SCD's
[2016-09-08] MEDS ORDERED: IPRATROPIUM BROMIDE/ALBUTEROL respimat INH INH SCH (17:00)
--- NOTE | 2016-09-08 22:15 | Discharge Summary ---
Discharge Summary Date of Service September 08, 2016. Discharge Summary Admission Date: September 06, 2016 at 19:16 Discharge Date: September 08, 2016 Discharge Disposition: Home Principal Diagnosis: Acute on Chronic systolic heart failure Problems/Secondary Diagnoses: Medical Problems: (1) Acute on chronic systolic (congestive) heart failure (2) History of Hodgkin's disease (3) Hypertension (4) Alcohol Abuse (5) Tobacco Use Disorder (6) Gout Surgical Problems: (1) History of rotator cuff surgery Consultations: none Medication Reconciliation New Medications: Aspirin (Aspirin) 81 Mg Chw 1 TAB PO DAILY for 30 Days, #30 TAB 3 Refills Furosemide (Furosemide) 40 Mg Tab 40 MG PO QD, #30 Lisinopril (Bulk) (Lisinopril) 1 Pow Pow 10 MG PO QD, #30 TAB Metoprolol Succinate (Toprol Xl) 25 Mg Tab 1 TAB PO DAILY for 30 Days, #30 TAB 5 Refills Potassium Chloride (K-Tab) 20 Meq Tab 20 MCG PO QD, #30 Continued Medications: Fluticasone Propionate (Flovent Hfa) 120 Puffs/20722 Mcg Aero 2 PUFF INH BID PRN for PRN Ipratropium-Albuterol (Combivent Respimat) 1 Aer Aer 1 PUFFS INH QID, INH [Blood Pressure] () 1 TAB PO DAILY [Diuretic] () 1 TAB PO DAILY Discharge Exam Review of Systems: Eyes: No diplopia, No discharge, No eye pain, No problem reported, No redness, No worsening of vision Respiratory: No cough, No dyspnea at rest, No dyspnea on exertion, No hemoptysis, No problem reported, No shortness of breath, No sputum, No wheezing Cardiovascular: + edema Abdomen: No GI bleeding, No constipation, No diarrhea, No nausea, No pain, No problem reported, No vomiting Musculoskeletal: + joint pain, + swelling Genitourinary - Male: No dysuria, No hematuria, No impotence, No lesions, No penile discharge, No problem reported, No urinary frequency, No urinary hesitancy, No urinary incontinence, No urinary retention, No urinary urgency Neurologic: No balance problems, No memory loss, No numbness/tingling, No paralysis, No problem reported, No vertigo, No weakness Endocrine: No excessive thirst, No excessive urination, No fatigue, No problem reported Hematologic / Lymphatic: No abnormal bleeding/bruising, No clotting problems , No night sweats, No problem reported, No swollen lymph nodes Integumentary: No bleeding, No color change, No itch, No new/changing skin lesions, No problem reported, No rash Physical Exam: General Appearance: no apparent distress Eyes: sclerae normal ENT: pharynx normal Neck: supple, no JVD Respiratory/Chest: chest non-tender, lungs clear, normal breath sounds, no respiratory distress Cardiovascular: regular rate, rhythm, no JVD, no murmur Abdomen / GI: normal bowel sounds, non tender, soft Extremities: + pedal edema (+1 bilateral legs - much improved) Neurologic/Psychiatric: no motor/sensory deficits, alert, oriented x 3 Skin: normal color, warm/dry, no rash Hospital Course 55yo male with h/o dilated cardiomyopathy/chronic systolic CHF presented as a referral from Dr. Henriquez's office ([facility]) due to decompensated CHF. For about 3 weeks he has had worsening LE edema, dyspnea on exertion, abdominal swelling, and weight gain (20-30 pounds). He denied chest pain or orthopnea. He admits to high salt intake through his diet over the last few months. He also drinks at least 2 shots of liquor nightly. Following his visit with Dr. Henriquez today he had blood work and was found to have low potassium and low magnesium. Attempts were going to be made to diurese him in the office but due to the electrolyte abnormalities and prolonged QTc on EKG he was referred to the ER. In addition to the above he reports active gout in the right mid- foot. He has had multiple episodes of gout in the past. Patient was admitted to the hospitalist service on telemetry. 1. acute/chronic systolic CHF - Patient was diuresed with IV furosemide which was later switched to PO furosemide. He denies any significant shortness of breath currently. He had an updated ECHO and his EF is reduced at 20 to 25%. He was diuresed for almost 20lbs. He was stated on Toprol XL, lisinopril, and aspirin which he will be discharged home on. He was instructed to limit his fluid and salt intake. 2. prolonged QTc - still prolonged - We had serial EKGs and his QTc was 0.506 to 0.518. He had hypomagnesemia and hypokalemia which were both repleted with combinations of IV and oral repletion. An EKG from 2007 had his QTc at 0.416. 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 3. midfoot gout on right - stop the chlorthalidone which we will continue to hold as we are switching to furosemide. He was on cochicine and naproxen which helped the gout flare. He gets frequent gout flares at home and I tried to explain the alcohol can contribute to the flares. 4. Alcohol abuse - he had no signs of withdrawal. We did treat with folate, thiamine and multivitamin and discussed cessation. 5. He was discharged home in stable condition. We did consult cardiology today, however the patient waited a few hours and then decided he did not want to wait any longer and was discharged home for outpatient follow-up. Total Time Spent: Greater than 30 minutes This includes examination of the patient, discharge planning, medication reconciliation, and communication with other providers. Discharge Instructions Please refer to the electronic Patient Visit Report (Discharge Instructions) for additional information. Follow-Up cardiology next week pcp next week
[2016-09-09] MEDS ORDERED: GABAPENTIN 400MG X1 DOSE PO SCH (08:00)
[2016-09-10] MEDS ORDERED: GABAPENTIN 200MG X1 DOSE PO SCH (08:00)
--- NOTE | 2016-10-02 16:05 | Medical Consult ---
Consultation Note Date of Service Oct 02, 2016. Consultation Note A consult request was placed to Dr. De León in for this patient on the day of admission, I don't believe I received a request and no consultation was performed during the hospitalization.
== END 2016-09-08 17:50 | disposition home or self-care (01) | DRG 293 ==
LOC: ENRESERVTM → CANRESERV → ENRESERVDT → C.EDB 17:36 → C.MED 19:16
PROVIDERS: ADMIT Internal Medicine; ATTEND Internal Medicine
DX: I11.0 Hypertensive heart disease with heart failure (principal); I50.23 Acute on chronic systolic (congestive) heart failure; I42.0 Dilated cardiomyopathy; F17.200 Nicotine dependence, unspecified, uncomplicated; E87.6 Hypokalemia; E83.42 Hypomagnesemia; M1A.9XX0 Chronic gout, unspecified, without tophus (tophi); J44.9 Chronic obstructive pulmonary disease, unspecified; F10.10 Alcohol abuse, uncomplicated; Z85.71 Personal history of Hodgkin lymphoma; E66.9 Obesity, unspecified; Z68.37 Body mass index [BMI] 37.0-37.9, adult

== ENCOUNTER 2018-05-03 15:55 | Inpatient (IN) ==
[2018-05-03 17:17] LABS: Basophils % (auto) 0.6 %; Eosinophils # (auto) 0.08 K/uL (0-0.5); Eosinophils % (auto) 0.5 %; Hematocrit (blood only) 30.9 % (42-52); Immature Granulocytes # (auto) 0.06 K/uL (0.00-0.02); Immature Granulocytes % (auto) 0.4 %; Lymphocytes # (auto) 2.81 K/uL (1.2-3.4); Lymphocytes % (auto) 17.5 %; Mean Corpuscular Hgb Conc 35.6 g/dL (32-36); Mean Corpuscular Volume 105.8 fL (80-100); Mean Platelet Volume 10.4 fL (7.4-10.4); Monocytes # (auto) 1.18 K/uL (0.11-0.59); Monocytes % (auto) 7.3 %; Neutrophils # (auto) 11.84 K/uL (1.4-6.5); Neutrophils % (auto) 73.7 %; Platelet Count 131 K/uL (130-400); RDW Coefficient of Variation 15.7 % (11.5-14.5); RDW Standard Deviation 60.9 fL (36.4-46.3); Red Blood Count 2.92 M/uL (4.7-6.1); White Blood Count 16.07 K/uL (4.8-10.8)
[2018-05-03 17:38] LABS: Albumin Level 2.8 gm/dl (3.4-5.0); BUN Creatinine Ratio 11.5 (10-20); Calcium 8.6 mg/dl (8.5-10.1); Creatinine Clr Calc Pharmacy 103.2 ml/min; Est GFR (African American) 94.3; Est GFR (Non-African American) 81.4; INR 1.6 (0.9-1.1); Magnesium 1.3 mg/dl (1.8-2.4); Potassium 2.7 mmol/L (3.5-5.1); Prothrombin Time 15.7 Seconds (9.0-12.0)
[2018-05-03 17:48] LABS: Albumin Globulin Ratio 0.6 (0.9-2); Bilirubin,Total 7.3 mg/dl (0.2-1); Globulin 4.7 gm/dl (2.5-4.0); Total Protein 7.5 gm/dl (6.4-8.2); Troponin I 0.039 ng/ml (0-0.045)
[2018-05-04 06:17] LABS: Basophils # (auto) 0.08 K/uL (0-0.2); Basophils % (auto) 0.7 %; Eosinophils # (auto) 0.15 K/uL (0-0.5); Eosinophils % (auto) 1.3 %; Hematocrit (blood only) 28.3 % (42-52); Hemoglobin 9.7 g/dL (14.0-18.0); Immature Granulocytes # (auto) 0.04 K/uL (0.00-0.02); Immature Granulocytes % (auto) 0.3 %; Lymphocytes # (auto) 2.53 K/uL (1.2-3.4); Lymphocytes % (auto) 21.6 %; Mean Corpuscular Hgb Conc 34.3 g/dL (32-36); Mean Platelet Volume 10.5 fL (7.4-10.4); Monocytes # (auto) 0.88 K/uL (0.11-0.59); Monocytes % (auto) 7.5 %; Neutrophils # (auto) 8.04 K/uL (1.4-6.5); Neutrophils % (auto) 68.6 %; Platelet Count 112 K/uL (130-400); RDW Coefficient of Variation 15.8 % (11.5-14.5); Red Blood Count 2.62 M/uL (4.7-6.1); White Blood Count 11.72 K/uL (4.8-10.8)
[2018-05-04 06:48] LABS: Appearance Urine Clear (Clear); Bacteria Urine Automated Negative (Negative); Cast Urine Automated 0 /lpf (0-5); Color Urine Orange; Glucose Urine UA Negative (Negative); Ketones Urine Negative (Negative); Leukocyte Esterase Urine Trace (Negative); Nitrite Urine Positive (Negative); Protein Urine Negative (Negative); Specific Gravity Urine 1.013 (1.000-1.030); Urobilinogen Urine Positive (Negative); pH Urine 6.5 (4.5-7.5)
[2018-05-04 06:49] LABS: INR 1.7 (0.9-1.1); Prothrombin Time 16.4 Seconds (9.0-12.0)
[2018-05-04 06:50] LABS: Bilirubin Urine 1+ (Negative); Ictotest Urine Positive (Negative)
[2018-05-04 06:52] LABS: Albumin Level 2.5 gm/dl (3.4-5.0); BUN Creatinine Ratio 14.9 (10-20); Bilirubin Direct 3.5 mg/dl (0-0.2); Calcium 8.2 mg/dl (8.5-10.1); Est GFR (African American) 123.1; Est GFR (Non-African American) 106.2; Magnesium 1.4 mg/dl (1.8-2.4); Potassium 2.9 mmol/L (3.5-5.1)
[2018-05-04 06:56] LABS: Phosphorus 3.6 mg/dl (2.5-4.9); Total Protein 6.5 gm/dl (6.4-8.2)
[2018-05-05 07:13] LABS: Albumin Level 2.4 gm/dl (3.4-5.0); BUN Creatinine Ratio 10.3 (10-20); Bilirubin Direct 3.1 mg/dl (0-0.2); Bilirubin,Total 7.1 mg/dl (0.2-1); Calcium 8.3 mg/dl (8.5-10.1); Est GFR (African American) 108.1; Est GFR (Non-African American) 93.3; Potassium 3.4 mmol/L (3.5-5.1); Total Protein 6.3 gm/dl (6.4-8.2)
[2018-05-05 12:36] LABS: Folate (Folic Acid) 3.15 ng/ml (>5.38)
[2018-05-06 06:29] LABS: Albumin Level 2.5 gm/dl (3.4-5.0); BUN Creatinine Ratio 11.8 (10-20); Bilirubin Direct 2.9 mg/dl (0-0.2); Bilirubin,Total 5.3 mg/dl (0.2-1); Calcium 8.8 mg/dl (8.5-10.1); Est GFR (African American) 125.4; Est GFR (Non-African American) 108.2; Total Protein 6.4 gm/dl (6.4-8.2)
[2018-05-07 07:03] LABS: Hematocrit (blood only) 29.2 % (42-52); Hemoglobin 9.8 g/dL (14.0-18.0); Mean Corpuscular Hgb Conc 33.6 g/dL (32-36); RDW Coefficient of Variation 16.5 % (11.5-14.5); RDW Standard Deviation 65.4 fL (36.4-46.3); Red Blood Count 2.63 M/uL (4.7-6.1); White Blood Count 14.05 K/uL (4.8-10.8)
[2018-05-07 07:17] LABS: INR 1.8 (0.9-1.1); Prothrombin Time 17.3 Seconds (9.0-12.0)
[2018-05-07 07:32] LABS: Albumin Level 2.5 gm/dl (3.4-5.0); BUN Creatinine Ratio 14.1 (10-20); Calcium 9.1 mg/dl (8.5-10.1); Creatinine Clr Calc Pharmacy 152.2 ml/min; Est GFR (African American) 123.1; Est GFR (Non-African American) 106.2; Magnesium 1.8 mg/dl (1.8-2.4); Potassium 4.1 mmol/L (3.5-5.1)
[2018-05-07 07:38] LABS: Albumin Globulin Ratio 0.6 (0.9-2); Bilirubin,Total 4.6 mg/dl (0.2-1); Globulin 4.2 gm/dl (2.5-4.0); Total Protein 6.7 gm/dl (6.4-8.2)
[2018-05-07 07:43] LABS: Mean Platelet Volume 10.3 fL (7.4-10.4); Platelet Count 93 K/uL (130-400)
[2018-05-08 08:09] LABS: Hematocrit (blood only) 29.1 % (42-52); Hemoglobin 9.7 g/dL (14.0-18.0); Mean Corpuscular Hgb Conc 33.3 g/dL (32-36); Mean Corpuscular Volume 111.1 fL (80-100); RDW Coefficient of Variation 16.4 % (11.5-14.5); RDW Standard Deviation 66.2 fL (36.4-46.3); Red Blood Count 2.62 M/uL (4.7-6.1); White Blood Count 15.82 K/uL (4.8-10.8)
[2018-05-08 08:17] LABS: INR 1.8 (0.9-1.1); Prothrombin Time 17.3 Seconds (9.0-12.0)
[2018-05-08 08:29] LABS: Mean Platelet Volume 10.3 fL (7.4-10.4); Platelet Count 91 K/uL (130-400)
[2018-05-08 08:36] LABS: Albumin Level 2.3 gm/dl (3.4-5.0); BUN Creatinine Ratio 13.7 (10-20); Creatinine Clr Calc Pharmacy 141.5 ml/min; Est GFR (African American) 119.7; Est GFR (Non-African American) 103.3; Magnesium 1.7 mg/dl (1.8-2.4); Potassium 4.2 mmol/L (3.5-5.1)
[2018-05-08 08:40] LABS: Albumin Globulin Ratio 0.6 (0.9-2); Bilirubin,Total 5.6 mg/dl (0.2-1); Total Protein 6.3 gm/dl (6.4-8.2)
[2018-05-09 06:35] LABS: Hematocrit (blood only) 30.7 % (42-52); Hemoglobin 10.2 g/dL (14.0-18.0); Mean Corpuscular Hgb Conc 33.2 g/dL (32-36); Mean Corpuscular Volume 111.2 fL (80-100); Mean Platelet Volume 10.5 fL (7.4-10.4); Platelet Count 114 K/uL (130-400); RDW Coefficient of Variation 16.3 % (11.5-14.5); Red Blood Count 2.76 M/uL (4.7-6.1); White Blood Count 15.56 K/uL (4.8-10.8)
[2018-05-09 07:06] LABS: INR 1.7 (0.9-1.1); Prothrombin Time 16.9 Seconds (9.0-12.0)
[2018-05-09 07:08] LABS: Albumin Globulin Ratio 0.6 (0.9-2); Albumin Level 2.5 gm/dl (3.4-5.0); BUN Creatinine Ratio 13.1 (10-20); Bilirubin,Total 6.9 mg/dl (0.2-1); Calcium 8.9 mg/dl (8.5-10.1); Creatinine Clr Calc Pharmacy 123.3 ml/min; Est GFR (African American) 113.1; Est GFR (Non-African American) 97.6; Globulin 4.3 gm/dl (2.5-4.0); Potassium 4.1 mmol/L (3.5-5.1); Total Protein 6.8 gm/dl (6.4-8.2)
[2018-05-10 19:35] LABS: HCO3 ABG 27 mmol/L (19-24); Oxygen Saturation ABG 98.3 % (90-95); PCO2 ABG 43 mmHg (35-46); PO2 ABG 203 mm/Hg (80-95); pH ABG 7.41 (7.35-7.45)
[2018-05-10 20:50] LABS: Allen Test Pos (Pos)
[2018-05-11 06:55] LABS: Basophils # (auto) 0.01 K/uL (0-0.2); Basophils % (auto) 0.1 %; Eosinophils # (auto) 0.06 K/uL (0-0.5); Eosinophils % (auto) 0.5 %; Hematocrit (blood only) 28.5 % (42-52); Hemoglobin 9.7 g/dL (14.0-18.0); Immature Granulocytes # (auto) 0.05 K/uL (0.00-0.02); Immature Granulocytes % (auto) 0.4 %; Lymphocytes # (auto) 2.18 K/uL (1.2-3.4); Mean Corpuscular Volume 113.1 fL (80-100); Mean Platelet Volume 10.3 fL (7.4-10.4); Monocytes # (auto) 1.54 K/uL (0.11-0.59); Monocytes % (auto) 12.7 %; Neutrophils # (auto) 8.24 K/uL (1.4-6.5); Neutrophils % (auto) 68.3 %; Platelet Count 121 K/uL (130-400); RDW Coefficient of Variation 15.8 % (11.5-14.5); RDW Standard Deviation 64.7 fL (36.4-46.3); Red Blood Count 2.52 M/uL (4.7-6.1); White Blood Count 12.08 K/uL (4.8-10.8)
[2018-05-11 07:30] LABS: Anisocytosis Present; Hypochromasia Present
[2018-05-11 07:43] LABS: Albumin Globulin Ratio 0.5 (0.9-2); Albumin Level 2.2 gm/dl (3.4-5.0); Bilirubin,Total 7.7 mg/dl (0.2-1); Calcium 8.9 mg/dl (8.5-10.1); Creatinine Clr Calc Pharmacy 124.3 ml/min; Est GFR (African American) 114.2; Est GFR (Non-African American) 98.6; Globulin 4.2 gm/dl (2.5-4.0); Potassium 4.2 mmol/L (3.5-5.1); Total Protein 6.4 gm/dl (6.4-8.2)
[2018-05-12 07:36] LABS: Albumin Level 2.2 gm/dl (3.4-5.0); BUN Creatinine Ratio 17.3 (10-20); Calcium 8.4 mg/dl (8.5-10.1); Creatinine Clr Calc Pharmacy 133.2 ml/min; Est GFR (African American) 118.4; Est GFR (Non-African American) 102.2; Potassium 3.6 mmol/L (3.5-5.1)
[2018-05-12 07:45] LABS: Albumin Globulin Ratio 0.5 (0.9-2); Bilirubin,Total 8.6 mg/dl (0.2-1); Globulin 4.2 gm/dl (2.5-4.0); Total Protein 6.4 gm/dl (6.4-8.2)
[2018-05-13 05:46] LABS: Basophils # (auto) 0.02 K/uL (0-0.2); Basophils % (auto) 0.1 %; Eosinophils # (auto) 0.19 K/uL (0-0.5); Eosinophils % (auto) 1.3 %; Hematocrit (blood only) 30.3 % (42-52); Hemoglobin 10.2 g/dL (14.0-18.0); Immature Granulocytes # (auto) 0.07 K/uL (0.00-0.02); Immature Granulocytes % (auto) 0.5 %; Lymphocytes # (auto) 2.69 K/uL (1.2-3.4); Lymphocytes % (auto) 18.9 %; Mean Corpuscular Hgb Conc 33.7 g/dL (32-36); Mean Corpuscular Volume 111.4 fL (80-100); Mean Platelet Volume 9.6 fL (7.4-10.4); Monocytes # (auto) 1.39 K/uL (0.11-0.59); Monocytes % (auto) 9.7 %; Neutrophils % (auto) 69.5 %; Platelet Count 139 K/uL (130-400); RDW Standard Deviation 60.6 fL (36.4-46.3); Red Blood Count 2.72 M/uL (4.7-6.1); White Blood Count 14.26 K/uL (4.8-10.8)
[2018-05-13 05:58] LABS: INR 1.7 (0.9-1.1); Partial Thromboplastin Ratio 1.2; Partial Thromboplastin Time 31.6 Seconds (21.0-31.0); Prothrombin Time 16.5 Seconds (9.0-12.0)
[2018-05-13 06:15] LABS: Magnesium 1.8 mg/dl (1.8-2.4); Phosphorus 2.6 mg/dl (2.5-4.9)
[2018-05-13 06:22] LABS: Macrocytosis Present
[2018-05-13 08:41] LABS: Albumin Level 2.5 gm/dl (3.4-5.0); Bilirubin Direct 4.1 mg/dl (0-0.2); Calcium 9.1 mg/dl (8.5-10.1); Creatinine Clr Calc Pharmacy 142.5 ml/min; Est GFR (African American) 121.7; Magnesium 1.8 mg/dl (1.8-2.4); Potassium 3.6 mmol/L (3.5-5.1)
[2018-05-13 08:43] LABS: Bilirubin,Total 8.8 mg/dl (0.2-1); Phosphorus 2.6 mg/dl (2.5-4.9); Total Protein 6.8 gm/dl (6.4-8.2)
[2018-05-14 08:15] LABS: Basophils # (auto) 0.02 K/uL (0-0.2); Basophils % (auto) 0.1 %; Eosinophils # (auto) 0.17 K/uL (0-0.5); Eosinophils % (auto) 1.2 %; Hematocrit (blood only) 30.1 % (42-52); Hemoglobin 10.1 g/dL (14.0-18.0); Immature Granulocytes # (auto) 0.05 K/uL (0.00-0.02); Immature Granulocytes % (auto) 0.4 %; Lymphocytes # (auto) 1.93 K/uL (1.2-3.4); Lymphocytes % (auto) 13.9 %; Mean Corpuscular Volume 112.3 fL (80-100); Monocytes # (auto) 1.58 K/uL (0.11-0.59); Monocytes % (auto) 11.4 %; Platelet Count 143 K/uL (130-400); RDW Coefficient of Variation 15.6 % (11.5-14.5); RDW Standard Deviation 64.1 fL (36.4-46.3); Red Blood Count 2.68 M/uL (4.7-6.1); White Blood Count 13.85 K/uL (4.8-10.8)
[2018-05-14 08:16] LABS: Mean Corpuscular Hgb Conc 33.6 g/dL (32-36)
[2018-05-14 08:42] LABS: Albumin Level 2.6 gm/dl (3.4-5.0); BUN Creatinine Ratio 15.1 (10-20); Bilirubin Direct 3.2 mg/dl (0-0.2); Bilirubin,Total 6.6 mg/dl (0.2-1); Calcium 8.7 mg/dl (8.5-10.1); Creatinine Clr Calc Pharmacy 123.4 ml/min; Est GFR (African American) 114.8; Est GFR (Non-African American) 99.1; Potassium 3.5 mmol/L (3.5-5.1); Total Protein 6.9 gm/dl (6.4-8.2)
[2018-05-14 09:01] LABS: Macrocytosis Present
[2018-05-17 07:26] LABS: Albumin Level 2.6 gm/dl (3.4-5.0); BUN Creatinine Ratio 19.3 (10-20); Bilirubin Direct 2.5 mg/dl (0-0.2); Calcium 8.2 mg/dl (8.5-10.1); Creatinine Clr Calc Pharmacy 147.4 ml/min; Est GFR (African American) 123.1; Est GFR (Non-African American) 106.2; Magnesium 1.6 mg/dl (1.8-2.4); Potassium 3.7 mmol/L (3.5-5.1)
[2018-05-17 07:37] LABS: Bilirubin,Total 4.8 mg/dl (0.2-1); Phosphorus 2.1 mg/dl (2.5-4.9); Total Protein 6.8 gm/dl (6.4-8.2)
[2018-05-18 08:06] LABS: Albumin Level 2.7 gm/dl (3.4-5.0); BUN Creatinine Ratio 17.3 (10-20); Bilirubin Direct 2.4 mg/dl (0-0.2); Calcium 8.3 mg/dl (8.5-10.1); Creatinine Clr Calc Pharmacy 135.9 ml/min; Est GFR (Non-African American) 102.7; Magnesium 1.9 mg/dl (1.8-2.4); Potassium 3.8 mmol/L (3.5-5.1)
[2018-05-18 08:11] LABS: Bilirubin,Total 4.6 mg/dl (0.2-1); Phosphorus 2.3 mg/dl (2.5-4.9); Total Protein 7.4 gm/dl (6.4-8.2)
== END 2018-05-19 15:25 | disposition home health service (06) ==
LOC: ED 15:55 → 2E 18:48 → SUATTDRO 18:48 → 2E 19:42 → 2S 05-12 10:01 → 4W 05-14 14:46 → 2N 05-14 23:43